=== PATIENT | male | born 2005 | race Two or more races ===

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

== ENCOUNTER 2025-08-09 05:37 | Emergency (ER) | payer MEDICAID, OTHER ==
[~2025-08-09] VITALS: Ht 182.9 cm; Wt 90.0 kg
[2025-08-09 05:41] VITALS: O2SAT 100
[2025-08-09] MEDS: ONDANSETRON 4MG ODT PO ONE (06:37)
[2025-08-09] MEDS: FLUTICASONE PROPIONATE 50MCG/SPRAY BOTTLE BOTHNSTRLS STA (06:40)
[2025-08-09] MEDS ORDERED: TOPUD PO (08:15)
[2025-08-09 08:29] VITALS: BP 150/81; PULSE 66; RESP 15; TEMP 36.9; O2SAT 100
[2025-08-09 08:29] LABS: INFLUENZA TYPE A Presumptive Negative (Pres. Neg.); INFLUENZA TYPE B Presumptive Negative (Pres. Neg.)
== END 2025-08-09 08:31 | disposition home or self-care (01) ==
LOC: ER 05:37
DX: B34.9 Viral infection, unspecified (principal); I10 Essential (primary) hypertension; R42 Dizziness and giddiness; R41.0 Disorientation, unspecified; Z20.822 Contact with and (suspected) exposure to COVID-19
CPT/HCPCS: 99285; 71045; 87426; 87804 ×2; 93005; Q0162